=== PATIENT | male | born 1985 | race Caucasian/White ===

== ENCOUNTER → 2021-06-13 14:31 | Outpatient (CLI) | payer MEDICAID, SELFPAY ==
--- NOTE | 2021-06-13 14:33 | US_ITS ---
PROCEDURE: US THYROID CLINICAL INDICATION: THYROID ENLARGEMENT COMPARISON: No exams were available for comparison FINDINGS: Right lobe: Lobe measures 1.6 cm in height by 4.3 cm in length 2.2 cm in wdith Left lobe: The left lobe measures 1.1 cm in height by 3.8 cm in length by 1.8 cm width. Both lobes show homogeneous echogenicity. Isthmus: The isthmus is borderline thickened measuring 3 mm. Additional findings: There is decreased vascularity to both lobes. IMPRESSION: Essentially normal size gland and essentially normal homogeneous appearing parenchyma, however the decreased vascularity suggest the possibility of a mild subacute thyroiditis and suggest clinical correlation Dictated by: Dr. Vito Gu MD 06/14/2021 11:48 Dr. Vito Gu MD in [place] 06/14/2021 11:48
== END ==
PROVIDERS: PCP Nurse Practitioner Family; Visit Provider Nurse Practitioner Family
DX: E04.9 Nontoxic goiter, unspecified (principal)
CPT/HCPCS: 76536

== ENCOUNTER → 2021-07-05 08:00 | Outpatient (CLI) | payer MEDICAID, SELFPAY ==
[2021-07-05 13:24] LABS: Basophils # 0.1 K/mm3 (0-0.2); Basophils % 0.5 % (0.1-2.0); Eosinophils # 0.4 K/mm3 (0.0-0.4); Eosinophils % 4.1 % (0.1-12.0); Hematocrit 43.6 % (42.0-52.0); Hemoglobin 14.1 g/dL (14.1-18.0); Lymphocytes # 2.3 K/mm3 (0.7-4.5); Lymphocytes % 25.5 % (10-50); Mean Corpuscular HGB Conc 32.2 g/dL (31.8-35.4); Mean Corpuscular Hemoglobin 32.5 pg (27.0-31.2); Mean Corpuscular Volume 100.7 fl (80-94); Monocytes # 0.5 K/mm3 (0.1-1.0); Neutrophils # 5.7 K/mm3 (1.8-7.8); Neutrophils % 63.9 % (37.0-80.0); Platelet Count 280 K/mm3 (142-424); Red Blood Count 4.33 M/mm3 (4.60-6.20); Red Cell Distribution Width 12.1 % (11.5-17.5); White Blood Count 8.9 K/mm3 (4.8-10.8)
[2021-07-05 13:29] LABS: Alanine Aminotransferase 20 U/L (12-78); Albumin Level 3.7 g/dl (3.5-5.0); Albumin/Globulin Ratio 1.2 (1.1-1.8); Alkaline Phosphatase 61 U/L (38-126); Anion Gap 10.4 mEq/L (5-15); Aspartate Amino Transferase 34 U/L (17-59); Bilirubin,Total 0.3 mg/dl (0.2-1.3); Blood Urea Nitrogen 17 mg/dl (9-20); Calcium 8.9 mg/dl (8.4-10.2); Carbon Dioxide 32 mmol/L (22.0-30.0); Chloride 100 mmol/L (98-107); Chol/HDL Ratio 5.3 (1-3.5); Cholesterol 170 mg/dl (140-200); Estimated Glomerular Filt Rate 95 ml/min (>60); GFR (African American) 116 ML/MIN (>60); Glucose 99 mg/dl (74-100); HDL Cholesterol 32 mg/dl (40-60); Potassium 4.4 mmoL/L (3.5-5.1); Sodium 138 mmol/L (136-145); Total Protein,Serum 6.7 g/dl (6.3-8.2); Triglycerides 377 mg/dl (30-150); VLDL Cholesterol 75 mg/dL (0-40)
[2021-07-05 13:40] LABS: Direct LDL Cholesterol 88.24 mg/dL (100-129)
[2021-07-05 13:59] LABS: Thyroid Stimulating Hormone 2.01 uIU/mL (0.465-4.68)
== END ==
PROVIDERS: Visit Provider Nurse Practitioner Family
DX: Z00.00 Encounter for general adult medical examination without abnormal findings (principal); E04.9 Nontoxic goiter, unspecified
CPT/HCPCS: 36415; 80053; 80061; 84443; 85025

== ENCOUNTER 2021-11-03 07:29 | Emergency (ER) | payer MEDICAID, SELFPAY ==
[2021-11-03 07:31] VITALS: BP 147/83; PULSE 111; RESP 18; TEMP 36.9; O2SAT 95; BMI 32.5
[2021-11-03 08:00] VITALS: BP 143/121
--- NOTE | 2021-11-03 08:24 | [facility].EDGENADL ---
ED Disposition Clinical Impression: Superficial punctate keratitis of both eyes Disposition: Home, Self-Care Condition on Discharge: Good Instructions: DI for Corneal Abrasion Additional Instructions: Use erythromycin ointment every 4 hours while awake in both eyes. Ibuprofen as needed for pain. Follow-up tomorrow with [facility]: Dr. Mckeon, Dr. Oh, Dr. Hoang [facility] [place] [address] You are being provided with a list of physicians available for follow-up of your condition. Please call a physician on this list to arrange a follow-up appointment as soon as possible. Referrals: Kristal Cedillo APRN [Primary Care Provider] - - Critical Care Critical Care Time: No Attestation: On 11/03/21, the high probability of a clinically significant, sudden or life threatening deterioration of the following system(s) required my full and direct attention, intervention and personal management. The time I documented below is in addition to time spent performing reported procedures but includes the following listed in this critical care notation. Medical Decision Making - Sudhir Inquiry Pt receiving controlled substance: No Vital Signs: 11/03/21 07:31 11/03/21 08:00 Temperature 98.5 F Temperature Source Oral Pulse Rate [Left Radial] 111 H Respiratory Rate 18 Blood Pressure 143/121 H Blood Pressure [Right Arm] 147/83 H Blood Pressure Mean 128 Blood Pressure Mean [Right Arm] 104 Blood Pressure Source [Right Arm] Automatic Cuff Blood Pressure Position [Right Arm] Sitting 02 Sat by Pulse Oximetry 95 Oxygen Delivery Method Room Air General Adult HPI - General Chief complaint: Eye Problems Stated complaint: FO in both eyes, difficulty seeing Time Seen by Provider: 11/03/21 08:00 Mode of Arrival: Ambulatory Limitations: No Limitations Description of Symptoms (Recalled from ER Triage Doc. by RN): c/o blurry vision, redness and drainage in bilateral eyes after engraving with lead last night and pieces got in his eyes - History of Present Illness HPI narrative: States that at 1 AM he was using a power tool to etch lead without eye protection. He could feel tiny particles going into his eyes and now has irritation of both eyes. He flushed it in the shower. He also called EMS and they flushed his eyes as well, but irritation continues. Left eye is worse than right. - Related Data Home Medications Medication Instructions Recorded Confirmed No Known Home Medications 11/03/21 11/03/21 Allergies Allergy/AdvReac Type Severity Reaction Status Date / Time No Known Allergies Allergy Verified 11/03/21 07:50 [facility] History - Hepatitis A Screen Drug use history?: No High risk sexual behaviors?: No History of sexually transmitted infection?: No Currently employed?: No Childcare worker?: No Do you have indoor plumbing?: Yes Do you have electricity?: Yes Attestation statement:: This patient has been screened for Hepatitis A risk factors. I have reviewed the patient's past medical history: Yes ROS Obtained: Yes Systems reviewed as appropriate & no additional complaints - Eyes Eyes: Reports blurry vision, Reports irritation, Denies loss of vision Physical Exam - General General appearance: alert, in no apparent distress - Expanded Eye Exam Eyelids: bilateral: normal inspection Pupils: Bilateral: regular, round Sclera/Conjunctival: bilateral: injection (Left worse than right) Anterior chamber: bilateral: normal inspection Comment: Examined with slit lamp and fluorescein stain. Injury typical of superficial punctate keratitis visible lower one half of left cornea. No uptake seen right cornea. Lids everted and swept with moistened Q-tip. Both eyes flushed with eyewash. No foreign bodies found on lid eversion or slit-lamp examination. - Respiratory Respiratory exam: Absent: respiratory distress - Cardiovascu
[2021-11-03 08:26] VITALS: BP 124/84
[2021-11-03 08:27] VITALS: BP 124/84; PULSE 111; RESP 18; TEMP 36.9; O2SAT 95
== END 2021-11-03 09:08 | disposition home or self-care (01) ==
PROVIDERS: Emergency Provider Emergency Medicine; PCP Nurse Practitioner Family
DX: H16.143 Punctate keratitis, bilateral (principal)
CPT/HCPCS: 99281